=== PATIENT | female | born 1980 | race Caucasian/White ===

== ENCOUNTER 2019-04-22 16:14 | Emergency (ER) | payer MEDICAID, SELFPAY ==
[2019-04-22 16:17] VITALS: BP 132/95; PULSE 84; RESP 16; TEMP 36.5; O2SAT 98
--- NOTE | 2019-04-22 16:39 | W.ED.GENAD ---
Discharge Plan Disposition Patient Disposition: HOME Discharge Details Chief Complaint: EarProblem Clinical Impression: Otitis externa of both ears Primary Care Provider: Mary Spencer ED Provider: Eric Hilton Home Meds and New Rx's Prescriptions: Continued escitalopram oxalate [Lexapro] 5 MG tablet 5 mg PO HS RF: 0 cephalexin 500 mg Capsule 500 mg PO TID RF: 0 Discharge Instructions Instructions: Antibiotic/Anti-inflammatory Combinations (Into the ear), Ciprofloxacin (Into the ear), Otitis Externa (ED) Additional Instructions: Please contact your primary care physician to arrange follow-up. Call tomorrow. Return to the ER for any worsening or new concerning symptoms. Referrals: Mary Spencer MD [Primary Care Provider] - Discharge Data Discharge Date/Time-TO BE ENTERED AT DEPARTURE: 04/22/19 17:50 Medical Decision Making 38-year-old female with history of intermittent ear infections in the past including otitis externa, here with bilateral ear discomfort. Significant swelling and pain of external canals bilaterally. Unable to visualize tympanic membranes. I suspect she has acute otitis externa -unclear etiology. Suspect possible allergic etiology. Consider bacterial. I will treat with CipoHC drops. Kaylie placed by me. Consider diabetes - fingerstick nl. Patient was instructed to follow-up with her primary care physician and to return to the ED for any worsening or new concerning symptoms. Patient understands the importance of timely follow-up and that she should return to the ED for any worsening or new concerning symptoms. HPI General Mode of arrival: ambulatory. Date/Time Provider Initiated Documentation: 04/22/19 16:19. Limitations to Documentation: no limitations. Information obtained by: patient. HPI Narrative: 38-year-old female presents with chief complaint of ear discomfort. Patient notes ears feel full and swollen. Symptoms started 2 days ago and have persisted. Right side is worse than the left. Symptoms are constant and moderate to severe intensity. No associated sinus congestion. No fever. She has had some yellow discharge from her ears. Patient states she has had similar occur in the past. She thinks possibly symptoms related to seasonal allergy. No recent swimming. Patient is currently on Keflex for toe infection which is healing well. No rash or respiratory symptoms. Related Data Home Medications Medication Instructions Recorded Confirmed escitalopram oxalate [Lexapro] 5 mg PO HS tab-cap 07/25/17 04/22/19 cephalexin 500 mg PO TID 04/22/19 04/22/19 Allergies Allergy/AdvReac Type Severity Reaction Status Date / Time Penicillins AdvReac n/v Unverified 04/22/19 16:21 General Stated Complaint: EarProblem DOMINGA: 5 Review of Systems Constitutional Denies body ache(s), Denies fever(s) and Denies headache(s) ENT Reports as per HPI and Denies headache(s) Integumentary/Breasts Denies rash Neurologic Denies headache(s) [facility] Medical History Anxiety and depression BMI 34.0-34.9,adult Diverticulosis of colon without diverticulitis Hyperglycemia Insomnia Tobacco use disorder Surgical History Diagnostic Laproscopy Dilation and curettage (09/27/17) Hysterectomy, Laproscopic (01/10/18) Ligation of fallopian tube Myringotomy w/ PE (pressure equalizing) tubes (06/28/13) Family History Son Diabetes Daughter Epilepsy Brother Diabetes Grandmother Diabetes aunt Personal history of malignant neoplasm Social History Smoking/Tobacco Use Status: Current every day Tobacco Type: cigarettes Alcohol Intake: never Drug use: Never Do you feel safe at home: Yes Do you feel safe in your relationship?: Yes Exam Const General: cooperative and no acute distress [facility] Head: normocephalic and atraumatic Ears: mastoids normal, EAC abnormal erythema and edema; no otic discharge and unable to visualize TM bilaterally General nose exam: external nose normal, nares normal, septum normal and no nasal discharge Mouth: oral mucosae normal and moist mucous membranes Throat: posterior oropharynx normal Eyes Conjunctivae: normal conjunctivae EOM: EOM intact bilaterally Neck Neck: no lymphadenopathy, trachea midline and supple Skin General skin exam: no rashes or lesions noted Neuro General: alert and awake Course Vital Signs Temperature 36.5 C 04/22/19 16:17 Pulse 84 04/22/19 16:17 Respiratory Rate 16 04/22/19 16:17 Blood Pressure 132/95 H 04/22/19 16:17 Pulse Oximetry 98 04/22/19 16:17 Temperature 36.5 C 04/22/19 16:17 Temperature Source Skin 04/22/19 16:17 Pulse 84 04/22/19 16:17 Respiratory Rate 16 04/22/19 16:17 Respiratory Effort 04/22/19 16:19 Blood Pressure 132/95 H 04/22/19 16:17 Pulse Oximetry 98 04/22/19 16:17 Pain Level 7 04/22/19 16:17
[2019-04-22] MEDS: Acetaminophen 325 MG TAB 650 MG PO (17:35)
[2019-04-22] MEDS: Ibuprofen 600 MG TAB PO (17:36)
== END 2019-04-22 17:50 | disposition home or self-care (01) ==
PROVIDERS: Emergency Provider Student in an Organized Health Care Education/Training Program; PCP Nurse Practitioner
DX: H60.93 Unspecified otitis externa, bilateral (principal)
CPT/HCPCS: 36416; 82962; 99283

== ENCOUNTER 2020-05-05 14:18 | Outpatient (REF) | payer SELFPAY ==
[2020-05-05 14:59] LABS: HCT 42.2 % (36.0-46.0); HGB 15.1 g/dL (12.0-15.5); Mean Corp. HGB Concentration 35.8 g/dL (32.0-36.0); Mean Corpuscular Hemoglobin 33.2 pg (27.0-33.0); Mean Corpuscular Volume 92.7 fL (80-95); Mean Platelet Volume 11.5 fL (8.0-11.0); Platelet Count 222 x1000/uL (130-400); RBC 4.55 m/cumm (4.00-5.20); White Blood Cell Count 9.21 k/cumm (4.4-10.8)
[2020-05-05 15:14] LABS: Iron 96 ug/dL (50-170); Total Iron Binding Capacity 313 ug/dL (250-450); Transferrin Sat 31 % (15-50)
[2020-05-05 15:17] LABS: ALT 37 U/L (14-59); AST 23 U/L (15-37); Albumin 4.1 g/dL (3.4-5.0); Alkaline Phosphatase 67 U/L (46-116); Anion Gap 9.3 mmol/L (3-11); BUN 12 mg/dL (7-18); Bilirubin, Total 0.3 mg/dL (0.2-1.0); CO2 24.7 mmol/L (21.0-32.0); CREATININE 0.74 mg/dL (0.55-1.02); Calcium 9.2 mg/dL (8.5-10.1); Chloride 107 mmol/L (98-107); Ferritin 64 ng/mL (8-252); Glucose 91 mg/dL (74-106); Potassium 4.2 mmol/L (3.5-5.1); Sodium 141 mmol/L (136-145); Total Protein 6.9 g/dL (6.4-8.2)
[2020-05-05 15:40] LABS: ESR 10 mm/hr (0-20)
[2020-05-07 10:24] LABS: COVID-19 RT-PCR UVMMC Result Negative (Negative)
== END 2020-05-05 14:38 ==
LOC: NCHCN 14:18
PROVIDERS: PCP Family Medicine; Visit Provider Nurse Practitioner Family
DX: R19.7 Diarrhea, unspecified (principal); R10.9 Unspecified abdominal pain; Z11.59 Encounter for screening for other viral diseases
CPT/HCPCS: 80053; 85027; 85652; U0003; 82728; 83540; 83550

== ENCOUNTER 2020-05-06 19:15 | Outpatient (REF) | payer SELFPAY ==
[2020-05-07 19:59] LABS: Campylobacter PCR Negative (Negative); Salmonella PCR Negative (Negative); Shiga Toxin PCR Negative (Negative); Shigella/Enteroinvasive Ecoli Negative (Negative)
== END 2020-05-06 19:35 ==
LOC: NCHCN 19:15
PROVIDERS: PCP Family Medicine; Visit Provider Nurse Practitioner Family
DX: R19.7 Diarrhea, unspecified (principal)
CPT/HCPCS: 87329; 87505; 87324

== ENCOUNTER 2020-05-07 01:12 | Outpatient (CLI) | payer SELFPAY ==
--- NOTE | 2020-05-07 | DI.CT_ITS ---
EXAM: CT ABDOMEN PELVIS W CLINICAL HISTORY: DIARRHEA, ACUTE, R19.7; ABD PAIN, ACUTE, R10.9 TECHNIQUE: Imaging Protocol: Axial computed tomography images with coronal and sagittal reformatted images were created and reviewed CONTRAST MATERIAL: Intravenous: Omnipaque 350 Contrast volume:100 mL Oral: Yes COMPARISON: No exams were available for comparison FINDINGS: ABDOMEN: Lung Bases: Normal where visualized. Liver: Normal density. No measurable mass. Portal, Superior Mesenteric, and Splenic Veins: Unremarkable. Gallbladder and Biliary Tract: No radiodense calculus or dilation. Pancreas: Normal density, no abnormal calcifications or inflammatory process. Spleen: Normal. Adrenals: No masses seen. Kidneys: Normal size, contour and axis. No radiodense stones or obstructive uropathy. No masses seen. Abdominal Aorta: Abdominal portion non-dilated. Atherosclerosis. Bowel: No obstruction or bowel wall thickening. Appendix is unremarkable. Diverticulosis but no evide nce of acute diverticulitis. Peritoneal Cavity: No ascites, collection or mesenteric inflammatory response. Lymph Nodes: Within normal limits. Bones: Within normal limits for the patient's age. Soft Tissues: Unremarkable. PELVIS: Bladder: Symmetric distention, no gross wall thickening. Reproductive Organs: The uterus is not visualized. The patient may be status post hysterectomy. Lymph Nodes: Within normal limits. Bones: Within normal limits. IMPRESSION: No acute abdominal or pelvic process. RADIATION DOSE DELIVERED: 1,078.36mGy.cm Total DLP DATA REPOSITORY: All CT scans at this facility are submitted to the National Radiology Data Registry (NRDR) Dose Index Registry (DIR) with the [employer] (ACR). RADIATION OPTIMIZATION: All CT scans at this facility use at least one of these dose optimization te chniques: automated exposure control; mA and/or kV adjustment per patient size (includes targeted exa ms where dose is matched to clinical indication); or iterative reconstruction.
[2020-05-07] MEDS: Omnipaque 350 MG/ML 50 ML BTL PO (11:35)
[2020-05-07] MEDS: Breeza Beverage 473 ML BTL PO (11:36)
[2020-05-07] MEDS: Omnipaque 350 MG/ML 100 ML BTL IJ (13:24)
[2020-05-07] MEDS: Normal Saline Flush 10 ML SYR IVP (13:25)
[2020-05-07] MEDS: Normal Saline - Diluent 50 ML VIAL IV (13:28)
== END 2020-05-07 01:32 ==
PROVIDERS: PCP Family Medicine; Visit Provider Nurse Practitioner Family
DX: R19.7 Diarrhea, unspecified (principal); R10.9 Unspecified abdominal pain
CPT/HCPCS: 74177; J3490; Q9967

== ENCOUNTER 2021-01-07 11:12 | Outpatient (CLI) | payer SELFPAY ==
--- NOTE | 2021-01-07 11:19 | DI.RAD_ITS ---
EXAM: XR WRIST LT COMPLETE CLINICAL HISTORY: PAIN IN LT WRIST, M25.532, DIFFUSE PAIN FOLLOWING FOOSH,WORK RELATED INJURY. TECHNIQUE: 2D digital imaging was performed. COMPARISON: No exams were available for comparison FINDINGS: BONES: No acute fracture is present. No bony destructive lesion is seen. JOINTS: The carpal bones are normally aligned. SOFT TISSUE: Normal. IMPRESSION: Unremarkable radiographs of the left wrist. DATA REPOSITORY: RADIATION DOSE DELIVERED:
== END 2021-01-07 11:13 ==
LOC: DI 01-08 11:13
PROVIDERS: PCP Family Medicine; Visit Provider Physician Assistant
DX: M25.532 Pain in left wrist (principal)
CPT/HCPCS: 73110

== ENCOUNTER 2021-09-01 13:35 | Outpatient (REF) | payer SELFPAY ==
[2021-09-02 18:43] LABS: COVID-19 RT-PCR UVMMC Result Negative (Negative)
== END 2021-09-01 13:36 | disposition home or self-care (01) ==
LOC: LBN 13:35
PROVIDERS: PCP Family Medicine; Visit Provider Nurse Practitioner Family
DX: Z20.822 Contact with and (suspected) exposure to COVID-19 (principal)
CPT/HCPCS: U0003

== ENCOUNTER 2022-02-09 11:20 | Emergency (ER) | payer SELFPAY ==
[2022-02-09] VITALS (16 sets, daily range): BP systolic 93–110; BP diastolic 56–74; PULSE 49–66; RESP 16; TEMP 36.5–36.7; O2SAT 94–99
--- NOTE | 2022-02-09 11:30 | DI.CT_ITS ---
Exam(s) CT ABDOMEN PELVIS W EXAM: CT ABDOMEN PELVIS W CLINICAL HISTORY: RLQ pain, vomiting, diarrhea. TECHNIQUE: Imaging Protocol: Axial computed tomography images with coronal and sagittal reformatted images were created and reviewed CONTRAST MATERIAL: Intravenous: Omnipaque 100cc Oral: None COMPARISON: CT CT ABDOMEN PELVIS W from 05/07/2020 FINDINGS: VISUALIZED LUNG BASES: Mild benign-appearing increased markings in the left lower lobe. No confluent infiltrates and no pleural effusions. ABDOMEN: There is no ascites in the upper abdomen. LIVER: There are no focal hepatic lesions evident . GALLBLADDER/BILIARY: No obvious gallbladder pathology. CBD is not dilated. PANCREAS: No evidence of pancreatic mass nor dilatation of the pancreatic duct. SPLEEN: Spleen is not enlarged. No obvious intrasplenic lesions. Splenic and portal veins are paten t. ADRENALS: There are no significant adrenal masses. KIDNEYS:No cysts evident. No solid renal masses. No calculi nor hydronephrosis.. ABDOMINAL AORTA: Abdominal aorta is not enlarged. LYMPH NODES:There is no retroperitoneal nor paraaortic adenopathy. ABDOMINAL WALL: No evidence of significant anterior abdominal wall nor inguinal hernia. GI: There is no evidence of bowel obstruction, free air, nor abscess. PELVIS: GI: No evidence of appendicitis.There is extensive sigmoid diverticulosis again noted. There is evide nce of acute diverticulitis in the descending colon at its junction with the sigmoid in the upper lef t iliac fossa. Mild streaking around diverticuli at this level. No evidence of abscess. LYMPH NODES: There is no intrapelvic nor inguinal adenopathy. REPRODUCTIVE: Uterus is surgically absent. No abnormal adnexal masses. However, there is a small amou nt of free fluid in the dependent aspect of the pelvis. URINARY BLADDER: No calculi nor obvious masses evident OSSEOUS: No significant osseous lesions. IMPRESSION: 1. Findings are consistent with acute diverticulitis. The culprit diverticuli are in the upper left i liac fossa just beyond the junction of the descending colon and upper sigmoid. There is no abscess at this time. 2. No evidence of appendicitis. 3. The uterus is again noted be surgically absent.. No abnormal adnexal masses. 4. Small amount of free fluid noted in the dependent aspect of the pelvis. There is possibly that thi s is purulent given the findings in the sigmoid. RADIATION DOSE DELIVERED: 999.68mGy.cm Total DLP DATA REPOSITORY: All CT scans at this facility are submitted to the National Radiology Data Registry (NRDR) Dose Index Registry (DIR) with the [employer] (ACR). RADIATION OPTIMIZATION: All CT scans at this facility use at least one of these dose optimization te chniques: automated exposure control; mA and/or kV adjustment per patient size (includes targeted exa ms where dose is matched to clinical indication); or iterative reconstruction.
--- NOTE | 2022-02-09 11:49 | ED.GENADUL_ITS ---
Discharge Plan Disposition Patient Disposition: HOME Condition: Stable Discharge Details Clinical Impression: Diverticulitis, Nausea & vomiting Primary Care Provider: Mary Spencer ED Provider: Yani Deshpande Home Meds and New Rx's Prescriptions: New metronidazole 500 mg tablet 500 mg PO TID Qty: 21 0RF ciprofloxacin HCl [Cipro] 500 mg tablet 500 mg PO BID Qty: 14 0RF oxycodone 5 mg capsule 5 mg PO TID PRNQty: 7 0RF prochlorperazine maleate [Compazine] 10 mg tablet 10 mg PO Q8H PRNQty: 7 0RF Discharge Instructions Instructions: Acute Nausea and Vomiting (ED) Additional Instructions: Take antibiotic as prescribed Acidophilus pills or yogurt while on the antibiotic Given oxycodone, you may take this as needed for pain uncontrolled with [id number] medications, this is addictive, and use caution Use nnsn-fyi-hockwwb medications such as Motrin and Tylenol and return earlier should you have new or worsening complaints Zofran prescription as needed for nausea Follow-up with on-call surgeon regarding diverticulitis Stand Alone Forms: Work Release Referrals: Ryan Christensen I [ NON-[facility] STAFF PHYSICIAN] - Mary Spencer MD [Primary Care Provider] - Discharge Data Discharge Date/Time-TO BE ENTERED AT DEPARTURE: 02/09/22 15:36 Medical Decision Making Labs within normal limits Diverticulitis on CT scan, no evidence of perforation, discussed with Dr. Benavides Patient will need follow-up labs in the outpatient setting Placed on Augmentin for home Return precautions discussed with patient understanding and she expressed understanding Recheck in 48 hours recommended Continue oral hydration at home, tolerate p.o. here Medical Records Medical records reviewed: Yes I reviewed the patient's medical records. Lab Data Lab results reviewed: Yes I reviewed the patient's lab results. HPI General Date/Time Provider Initiated Documentation: 02/09/22 11:32 . HPI Narrative: This 41-year-old female presents with report of nausea, vomiting, diarrhea, abdominal pain. Denies any fever but has had chills. Tested +10 days ago but had negative chest following that initial positive. She denies any chest pain or shortness of breath. Denies any chance of . Denies any urinary symptoms. Denies any blood in vomitus or stools. Does not drink alcohol on regular basis. Denies cough. Related Data Home Medications Medication Instructions Recorded Confirmed ciprofloxacin HCl 500 mg tablet 500 mg PO BID #14 tab 02/09/22 (Cipro) metronidazole 500 mg tablet 500 mg PO TID #21 tab 02/09/22 oxycodone 5 mg capsule 5 mg PO TID PRN #7 cap 02/09/22 prochlorperazine maleate 10 mg 10 mg PO Q8H PRN #7 tab 02/09/22 tablet (Compazine) Previous Rx's Medication Instructions Recorded ciprofloxacin HCl 500 mg tablet 500 mg PO BID #14 tab 02/09/22 (Cipro) metronidazole 500 mg tablet 500 mg PO TID #21 tab 02/09/22 oxycodone 5 mg capsule 5 mg PO TID PRN #7 cap 02/09/22 prochlorperazine maleate 10 mg 10 mg PO Q8H PRN #7 tab 02/09/22 tablet (Compazine) Allergies Allergy/AdvReac Type Severity Reaction Status Date / Time Penicillins AdvReac n/v Verified 02/09/22 11:38 General Stated Complaint: Nausea/Vomit/Diar DOMINGA: 3 Review of Systems All systems reviewed & are unremarkable except as noted in HPI and below PFSH All Active Problems Diverticulitis (Chronic) Nausea & vomiting (Acute) Abnormal uterine bleeding (AUB) (Acute 07/25/17) 14 day intervals between cycles. Bleeds for 2w. EMBx simple and complex hyperplasia without atypia. Rx with Mirena IUD. Anxiety and depression (Acute 07/28/17) BMI 34.0-34.9,adult (Acute 07/28/17) Diverticulosis of intestine, part unspecified, without perforation or abscess without bleeding (Acute 07/28/17) Endometrial hyperplasia without atypia, complex (Acute 08/08/17) Rx with Mirena IUD insertion 08/08/2017. Hyperglycemia (Acute 07/28/17) IUD (intrauterine device) in place (Acute 08/08/17) Insomnia, unspecified (Acute 07/28/17) Tobacco use (Acute 07/25/17) Medical History (Updated 02/09/22 @ 15:31 by HOPE Leung) Anxiety and depression BMI 34.0-34.9,adult Diverticulosis of colon without diverticulitis diagnosed 2009 at time of laparoscopy for pelvic pain. no recurrences Hyperglycemia Insomnia Tobacco use disorder 1/2 PPD Surgical History Diagnostic Laproscopy 2009 for abd pain, dx with diverticulosis Dilation and curettage (09/27/17) To evaluate abnormal uterine bleeding after Mirena IUD placement in July 2017. AOC Hysterectomy, Laproscopic (01/10/18) with bilateral salpingectomy. ovaries conserved. Ligation of fallopian tube 2007 Myringotomy w/ PE (pressure equalizing) tubes (06/28/13) for otitis media Family History Son Diabetes Daughter Epilepsy Brother Diabetes Grandmother Diabetes aunt Personal history of malignant neoplasm ovarian CA, Breast CA Social History Smoking/Tobacco Use Status: Current every day Tobacco Type: cigarettes Smoking risk assessment performed?: Yes Alcohol Intake: never Drug use: Daily Substance use type: marijuana Do you feel safe at home: Yes Do you feel safe in your relationship?: Yes Exam Const General: cooperative, comfortable and no acute distress HENMT Other: Moist mucous membranes Eyes Sclera: sclerae normal Pupils: PERRL Resp Effort & Inspection: normal respiratory effort Auscultation: clear to auscultation bilaterally Cardio Rate: regular rate Rhythm: regular rhythm GI Other: Diffusely tender abdominal exam Skin General skin exam: no rashes or lesions noted Neuro General: patient alert and patient oriented x3 Extrem Other: Distal pulses intact Course Vital Signs Vital signs: Vital Signs Temperature 36.7 C 02/09/22 11:30 Pulse 66 02/09/22 11:30 Respiratory Rate 16 02/09/22 11:30 Blood Pressure 110/64 02/09/22 11:30 Pulse Oximetry 98 02/09/22 11:30 Temperature 36.7 C 02/09/22 11:30 Temperature Source Temporal Artery Scan 02/09/22 11:30 Pulse 66 02/09/22 11:30 Respiratory Rate 16 02/09/22 11:30 Respiratory Effort Non-Labored 02/09/22 11:33 Blood Pressure 110/64 02/09/22 11:30 Blood Pressure Position Sitting 02/09/22 11:30 Pulse Oximetry 98 02/09/22 11:30 Oxygen Delivery Method Room Air 02/09/22 11:30 Oxygen Flow Rate 0 02/09/22 11:30 Pain Level 7 02/09/22 11:30
[2022-02-09 12:39] LABS: Abs Immature Grans 0.04 10^3/uL (0.0-0.06); Absolute Basophil Count 0.04 10^3/uL (0.0-0.2); Absolute Lymphocyte Count 1.76 10^3/uL (1.2-3.4); Absolute Monocyte Count 0.73 10^3/uL (0.1-0.8); Absolute Neutrophil Count 6.16 10^3/uL (1.2-6.7); Basophils % 0.4; Eosinophils % 3.3; HCT 43.8 % (36.0-46.0); HGB 15.7 g/dL (11.2-15.7); Immature Grans % 0.4; Lymphocytes % 19.5; MCH 32.8 pg (27.0-33.0); MCHC 35.8 % (32.0-36.0); MCV 91.6 fL (80-95); Monocytes % 8.1; Neutrophils % 68.3; Nucleated RBC 0 %; Platelet Count 228 10^3/uL (130-400); RBC 4.78 10^6/uL (3.93-5.22); RDW 11.3 % (11.7-14.6); RDW-SD 38.5 fL; WBC 9.03 10^3/uL (4.4-10.8)
[2022-02-09] MEDS: fentaNYL 100 MCG/2 ML VIAL 50 MCG IVP (12:42)
[2022-02-09] MEDS: Lactated Ringers 1,000 ML 1000 ML IV ×2 (12:43→14:05)
[2022-02-09] MEDS: Prochlorperazine 10 MG/2 ML VIAL IVP (12:43)
[2022-02-09 13:05] LABS: ALT 51 U/L (14-59); AST 31 U/L (15-37); Albumin 3.6 g/dL (3.4-5.0); Alkaline Phosphatase 79 U/L (46-116); Anion Gap 9.3 mmol/L (3-11); BUN 12 mg/dL (7-18); Bilirubin, Total 0.3 mg/dL (0.2-1.0); CO2 23.7 mmol/L (21.0-32.0); CREATININE 0.7 mg/dL (0.55-1.02); Calcium 8.9 mg/dL (8.5-10.1); Chloride 107 mmol/L (98-107); Glucose 88 mg/dL (74-106); Lipase 36 U/L (73-393); Potassium 4.1 mmol/L (3.5-5.1); Sodium 140 mmol/L (136-145); Total Protein 6.8 g/dL (6.4-8.2)
[2022-02-09 13:16] LABS: Source Nasal/Nares
--- NOTE | 2022-02-09 13:20 | NUR.NOTE ---
Morphine not given at this time due to low blood pressures, pt receiving fluids and will re-evaluate, FPJ
[2022-02-09] MEDS: Omnipaque 350 MG/ML 100 ML BTL IJ (13:54)
[2022-02-09 13:55] LABS: COVID-19 PCR Negative (Negative)
[2022-02-09] MEDS: Normal Saline Flush 10 ML SYR IVP (13:56)
[2022-02-09] MEDS: ACETAMINOPHEN 1,000 MG/100 ML BTL 400 MG IVPB (14:05)
== END 2022-02-09 15:36 | disposition home or self-care (01) ==
PROVIDERS: Emergency Provider Physician Assistant; PCP Family Medicine
DX: K57.92 Diverticulitis of intestine, part unspecified, without perforation or abscess without bleeding (principal); R11.2 Nausea with vomiting, unspecified; R10.31 Right lower quadrant pain; Z20.822 Contact with and (suspected) exposure to COVID-19
CPT/HCPCS: 36415; 80053; 83690; 87635; 96361; 96374; 96375; 99284; 99285; U0003; 74177; 83735; 85025; J0131; J0780; J2270; J3010; J3490

== ENCOUNTER 2022-02-09 19:19 | Outpatient (REF) | payer SELFPAY ==
[2022-02-09 20:10] LABS: Bilirubin Negative (Negative); Blood Trace-intact (Negative); Clarity Turbid (Clear); Glucose Negative (Negative); Ketones Negative (Negative); Leukocyte Esterase Negative (Negative); Nitrite Positive (Negative); Specific Gravity >= 1.030 (1.005-1.025); Urobilinogen 0.2 EU/dL (Up TO 0.2); pH 6.5 (5-8)
[2022-02-09 20:23] LABS: C & S Indicated? Yes; Crystals Many Amorphous HPF (Negative)
== END 2022-02-09 19:20 | disposition home or self-care (01) ==
LOC: LBN 19:19
PROVIDERS: PCP Family Medicine; Visit Provider Nurse Practitioner Family
DX: N39.0 Urinary tract infection, site not specified (principal)
CPT/HCPCS: 81003; 81015; 87086

== ENCOUNTER 2022-06-09 09:42 | Emergency (ER) | payer SELFPAY ==
--- NOTE | 2022-06-09 09:45 | DI.RAD_ITS ---
Exam(s) XR HAND RT COMPLETE EXAM: XR HAND RT COMPLETE CLINICAL HISTORY: pain hand, 5th mcp. TECHNIQUE: 2D digital imaging was performed of the right hand. Three images were obtained. AP, late ral and oblique views were obtained. COMPARISON: No exams were available for comparison FINDINGS: BONES: No acute fracture is present. No bony destructive lesion is seen. JOINTS: No dislocation present. SOFT TISSUE: Normal. IMPRESSION: Unremarkable radiographs of the right hand. DATA REPOSITORY: RADIATION DOSE DELIVERED:
[2022-06-09 09:57] VITALS: BP 115/55; PULSE 66; RESP 16; TEMP 36.9; O2SAT 98
[2022-06-09] MEDS: Acetaminophen 325 MG TAB 650 MG PO (10:06)
--- NOTE | 2022-06-09 15:43 | W.ED.GENAD ---
Discharge Plan Disposition Patient Disposition: HOME Condition: Stable Discharge Details Clinical Impression: Finger injury Primary Care Provider: Mary Spencer ED Provider: Yani Deshpande Home Meds and New Rx's Prescriptions: Continued metronidazole 500 mg tablet 500 mg PO TID Qty: 21 0RF ciprofloxacin HCl [Cipro] 500 mg tablet 500 mg PO BID Qty: 14 0RF oxycodone 5 mg capsule 5 mg PO TID PRNQty: 7 0RF prochlorperazine maleate [Compazine] 10 mg tablet 10 mg PO Q8H PRNQty: 7 0RF Discharge Instructions Additional Instructions: Follow-up with your primary care physician Wear your splint as needed for discomfort Ibuprofen and Tylenol as needed for pain Return earlier should you have new or worsening complaints Listing behavioral health. Follow-up with Stand Alone Forms: Work Release Referrals: [facility] [Provider Group] Discharge Data Discharge Date/Time-TO BE ENTERED AT DEPARTURE: 06/09/22 11:00 Medical Decision Making Patient given mental health resources and spoke with her mental health provider for outpatient follow-up with counselor She is stable from a mental health standpoint at time of my clinical assessment for discharge home She is placed in a finger splint by me There is no evidence of fracture on her x-ray of her hand per my interpretation and radiology will review Medical Records Medical records reviewed: Yes I reviewed the patient's medical records. HPI General Date/Time Provider Initiated Documentation: 06/09/22 09:44. HPI Narrative: This 41-year-old female presents with report of a hand pain after punching a wall. Denies any additional injuries. She found out of anger regarding family situation. She feels safe at home. She denies any suicidal ideation. Related Data Home Medications Medication Instructions Recorded Confirmed ciprofloxacin HCl 500 mg tablet 500 mg PO BID #14 tabs 02/09/22 (Cipro) metronidazole 500 mg tablet 500 mg PO TID #21 tabs 02/09/22 oxycodone 5 mg capsule 5 mg PO TID PRN #7 caps 02/09/22 prochlorperazine maleate 10 mg 10 mg PO Q8H PRN #7 tabs 02/09/22 tablet (Compazine) Previous Rx's Medication Instructions Recorded ciprofloxacin HCl 500 mg tablet 500 mg PO BID #14 tabs 02/09/22 (Cipro) metronidazole 500 mg tablet 500 mg PO TID #21 tabs 02/09/22 oxycodone 5 mg capsule 5 mg PO TID PRN #7 caps 02/09/22 prochlorperazine maleate 10 mg 10 mg PO Q8H PRN #7 tabs 02/09/22 tablet (Compazine) Allergies Allergy/AdvReac Type Severity Reaction Status Date / Time Penicillins AdvReac n/v Verified 02/09/22 11:38 General Stated Complaint: Orthopedic DOMINGA: 4 Review of Systems All systems reviewed & are unremarkable except as noted in HPI and below PFSH All Active Problems Finger injury (Acute) Abnormal uterine bleeding (AUB) (Acute 07/25/17) 14 day intervals between cycles. Bleeds for 2w. EMBx simple and complex hyperplasia without atypia. Rx with Mirena IUD. Anxiety and depression (Acute 07/28/17) BMI 34.0-34.9,adult (Acute 07/28/17) Diverticulosis of intestine, part unspecified, without perforation or abscess without bleeding (Acute 07/28/17) Endometrial hyperplasia without atypia, complex (Acute 08/08/17) Rx with Mirena IUD insertion 08/08/2017. Hyperglycemia (Acute 07/28/17) IUD (intrauterine device) in place (Acute 08/08/17) Insomnia, unspecified (Acute 07/28/17) Tobacco use (Acute 07/25/17) Medical History (Updated 06/09/22 @ 10:33 by HOPE Leung) Anxiety and depression BMI 34.0-34.9,adult Diverticulosis of colon without diverticulitis diagnosed 2009 at time of laparoscopy for pelvic pain. no recurrences Hyperglycemia Insomnia Tobacco use disorder 1/2 PPD Surgical History Diagnostic Laproscopy 2009 for abd pain, dx with diverticulosis Dilation and curettage (09/27/17) To evaluate abnormal uterine bleeding after Mirena IUD placement in July 2017. AO Hysterectomy, Laproscopic (01/10/18) with bilateral salpingectomy. ovaries conserved. Ligation of fallopian tube 2007 Myringotomy w/ PE (pressure equalizing) tubes (06/28/13) for otitis media Family History Son Diabetes Daughter Epilepsy Brother Diabetes Grandmother Diabetes aunt Personal history of malignant neoplasm ovarian CA, Breast CA Social History Smoking/Tobacco Use Status: Current every day Tobacco Type: cigarettes Smoking risk assessment performed?: Yes Alcohol Intake: never Drug use: Daily Substance use type: marijuana Do you feel safe at home: Yes Do you feel safe in your relationship?: Yes Exam Const General: cooperative, comfortable and no acute distress Extrem Hand/finger images: 1. Tenderness, ecchymosis, brisk capillary refill, sensation intact distally Course Vital Signs Vital signs: Vital Signs Temperature 36.9 C 06/09/22 09:57 Pulse 66 06/09/22 09:57 Respiratory Rate 16 06/09/22 09:57 Blood Pressure 115/55 L 06/09/22 09:57 Pulse Oximetry 98 06/09/22 09:57 Temperature 36.9 C 06/09/22 09:57 Temperature Source Temporal Artery Scan 06/09/22 09:57 Pulse 66 06/09/22 09:57 Respiratory Rate 16 06/09/22 09:57 Respiratory Effort 06/09/22 10:00 Blood Pressure 115/55 L 06/09/22 09:57 Blood Pressure Position Sitting 06/09/22 09:57 Pulse Oximetry 98 06/09/22 09:57 Oxygen Delivery Method Room Air 06/09/22 09:57 Oxygen Flow Rate 0 06/09/22 09:57 Pain Level 3 06/09/22 09:57
== END 2022-06-09 11:00 | disposition home or self-care (01) ==
PROVIDERS: Emergency Provider Physician Assistant; PCP Family Medicine
DX: S60.051A Contusion of right little finger without damage to nail, initial encounter (principal); F17.210 Nicotine dependence, cigarettes, uncomplicated; W22.01XA Walked into wall, initial encounter
CPT/HCPCS: 29130; 99283; 73130

== ENCOUNTER 2025-03-19 23:05 | Outpatient (REF) | payer MEDICAID, SELFPAY | END 2025-03-19 23:06 | disposition home or self-care (01) | LOC: LBN 23:05 | PROVIDERS: PCP Family Medicine; Visit Provider Registered Nurse | DX: J02.9 Acute pharyngitis, unspecified (principal) | CPT/HCPCS: 87070 ==